=== PATIENT | male | born 1980 | race Caucasian/White ===

== ENCOUNTER 2020-12-31 09:37 | Outpatient (REF) | payer OTHER, SELFPAY ==
--- NOTE | 2021-01-01 08:07 | MHC.AU.ANO ---
Adult Audiological Evaluation Date of Visit: 12/31/20 Doctor Naturopathic Used: Not Applicable Reason for Appointment: Referred for audiologic evaluation due to question of hearing loss. Brian notes he has difficulty understanding speech, particularly when there is other speech or noise in the background. He thinks he has more difficulty hearing from the left ear. Brian notes he recently fell asleep with an earbud in the left ear and then experienced discomfort and a sore or pimple in the bottom of the left ear canal. This discomfort has now resolved. Brian has been diagnosed with Attention Deficit Disorder and he questions if his difficulty with attention may relate to the hearing trouble. He also experiences significant symptoms related to food and environmental allergies. Does patient feel they have a hearing loss?: Unsure Has hearing been tested previously?: Yes Previous Hearing Test Results: Approximately 10 years ago. Results are not known. Hearing Handicap Inventory: HHIE SCORE: 32 Based on HHIE score, patient has: Severe perceived hearing handicap Ear History: Ear used on the phone: Right Ear History of occupational noise exposure?: No History: History: No Medical History: Medical History: Hyperlipidemia, Bipolar Disorder, seasonal and food allergies Medication List: Flonase Otoscopy: Right Ear: Unremarkable Left Ear: Unremarkable Tympanometry: Tympanometry performed due to: To assess integrity of the middle ear system Right Ear: Normal Middle Ear System (Type A) Left Ear: Hypercompliant Middle Ear System (Type Ad) Otoacoustic Emissions Frequency Range Used: 1.6-8 kHz Right Ear Results: Present 1565-4446 Hz with reduced emission at 4000 Hz Analysis: Present emissions suggest normal cochlear function Left Ear Results: Present at 2000 & 3000 Hz. Absent 1600 and 9008-8547 Hz Analysis: Present emissions suggest normal cochlear function Reduced/absent emissions may be consequence of middle ear dysfunction Hearing Evaluation: Transducer(s) Used: Insert Earphones Bone Conduction Method: Conventional Audiometry Stimuli Used: Pure Tones Right Ear: Description of Hearing: Normal hearing thresholds through all frequencies Left Ear: Description of Hearing: Borderline normal to mild conductive hearing loss through all frequencies Speech Recognition Threshold (SRT): Method Used: Monitored Live Voice Stimuli Used: Spondee Words Right Ear: 5 dB HL Left Ear: 20 dB HL Word Discrimination: Method: Recorded Lists Word Lists Used: NU-6 Right Ear: 92% at 50 dB HL Left Ear: 96% at 60 dB HL Interpretation of Results: The left ear conductive hearing loss may relate to the hypercompliant left middle ear system. Brian does report experiencing a possible concussion over 10 years ago, but was never diagnosed with a specific head injury. Decreased hearing, even in one ear may cause increased difficulty with speech understanding. Also discussed attention greatly relates to listening difficulties and when multiple sounds/speech are heard it is difficult to concentrate on one sound source. Allergies/congestion may also make speech more muffled and not clear. Recommendations: Referral to Ear, Nose, and Throat is recommended due to conductive nature of the decreased hearing in the left ear and hypercompliant tympanic membrane. Audiological re-evaluation in one year to monitor hearing thresholds. Will send a reminder card. Diagnosis: Primary Diagnosis: H90.12 ConductiveHL, Unilateral Left Ear, W/Unrestricted Contralateral Secondary Diagnosis: H69.92 Unspecified Eustachian Tube Dysfunction, Left Ear Services Performed: Comprehensive Audiological Evaluation (CPT 83392) Diagnostic Otoacoustic Emissions (CPT 55825, 26+TC) Tympanometry (CPT 94325) Signature: Provider: Fernando Mendoza, CCC-A
== END 2020-12-31 09:38 | disposition home or self-care (01) ==
LOC: HO.SH 09:37
PROVIDERS: Visit Provider Nurse Practitioner
DX: H90.12 Conductive hearing loss, unilateral, left ear, with unrestricted hearing on the contralateral side (principal); H69.92 Unspecified Eustachian tube disorder, left ear
CPT/HCPCS: 92557; 92567; 92588